=== PATIENT | male | born 1965 | race Caucasian/White ===

== ENCOUNTER 2019-01-30 05:02 | Inpatient (IN) ==
--- NOTE | 2019-01-22 09:39 | PAT Medication Instructions ---
Medication Instructions Date of Service January 22, 2019 Home Medications atorvastatin [Lipitor] 20 mg PO PM diphenhydramine-acetaminophen [Acetaminophen PM] 1 tab PO HS PRN [Centrum Silver Men] 1 tab PO QPM olmesartan [Benicar] 20 mg PO QPM omeprazole magnesium [Prilosec OTC] 20 mg PO QDL zolpidem [Ambien] 10 mg PO HS PRN Take morning of surgery With a small sip of water, OTHERWISE NOTHING TO EAT OR DRINK AFTER MIDNIGHT: omeprazole magnesium [Prilosec OTC] 20 mg PO QDL Take evening before surgery atorvastatin [Lipitor] 20 mg PO PM diphenhydramine-acetaminophen [Acetaminophen PM] 1 tab PO HS PRN (if needed) [Centrum Silver Men] 1 tab PO QPM olmesartan [Benicar] 20 mg PO QPM zolpidem [Ambien] 10 mg PO HS PRN (if needed) Other Notes If you have any questions please call us at [phone] or [phone] or [phone] or [phone]
--- NOTE | 2019-01-22 14:48 | Anesthesiology Consultation ---
Date of Service January 22, 2019 Assessment & Plan (1) Encounter for pre-operative examination: Chart Review Chart Review: Acceptable Risk for Surgery and Patient seen in Pre Admission Testing Teaching & Discussion Instructed NPO after midnight before surgery, except medications with 15 cc of water. Medication instructions provided according to the PAT guidelines. History Surgery Operation Date: 01/30/19 09:50 Proposed Procedures p Right STAR Total Ankle Replacement, - Ryan Lee DO s Possible Percutaneous Tendon Achilles Lengthening - Ryan Lee DO Height/Weight Height: 5 ft 8 in Weight: 94.9 kg Allergies Allergy/AdvReac Type Severity Reaction Status Date / Time No Known Allergies Allergy Verified 01/21/19 13:21 Medications Home Medications Medication Instructions Recorded Confirmed Last Taken atorvastatin [Lipitor] 20 mg PO PM 01/21/19 01/21/19 Unknown diphenhydramine-acetaminophen 1 tab PO HS PRN 01/21/19 01/21/19 Unknown [Acetaminophen PM] opzzwkef-tvz-HF-lycopen-lutein 1 tab PO QPM 01/21/19 01/21/19 Unknown [Centrum Silver Men] olmesartan [Benicar] 20 mg PO QPM 01/21/19 01/21/19 Unknown omeprazole magnesium [Prilosec OTC] 20 mg PO QDL 01/21/19 01/21/19 Unknown zolpidem [Ambien] 10 mg PO HS PRN 01/21/19 01/21/19 Unknown Past Medical History Medical History Ankle pain GERD (gastroesophageal reflux disease) Hyperlipidemia Hypertension Exercise / Class Metabolic Activity II 4-5 Yardwork/Stairs/Walk up hill Past Surgical History Surgical History History of open reduction and internal fixation (ORIF) procedure RIGHT Hx of arthroscopic knee surgery Hx of repair of left rotator cuff Hx of repair of right rotator cuff Past Anesthesia History No Hx of Anesthesia Complications and No Family Hx of Anesthesia Complications History of PONV No Hx of PONV and No Hx of Motion Sickness Social History Smoking Status: Never smoker Hx Alcohol Use: Yes Alcohol type: beer alcohol intake frequency: a few times a week Hx Substance Use: No Review of Systems Pt denies any recent chest pain, shortness of breath, palpitations, cough, fever or URI. Physical Exam Vital Signs BP: 126/84 P: 79bpm SPO2: 96% RA T: 98.0 F R: 12 ENMT Mouth: + dental restorations (permanent denture top front 6 teeth); no chipped teeth and no loose teeth Thyromental Distance: > or= 3.5 Finger Breadths (3.5) Mallampati Class: II Neck normal visual inspection; neck extension not limited Respiratory normal respiratory effort Auscultation: lungs clear to auscultation bilaterally Cardiovascular Rate/Rhythm: regular rate and regular rhythm Heart Sounds: no murmur Vessels: no carotid bruit Extremities: no edema Testing Laboratory Results 01/22/19 15:00 01/22/19 15:00 PT 9.8 Seconds (9.0-12.0) 01/22/19 15:00 INR 1.0 (0.9-1.1) 01/22/19 15:00 APTT 25.1 Seconds (21.0-31.0) 01/22/19 15:00 Urine Color Yellow 01/22/19 15:00 Urine Appearance Clear (Clear) 01/22/19 15:00 Urine pH 7.0 (4.5-7.5) 01/22/19 15:00 Ur Specific [place] 1.025 (1.000-1.030) 01/22/19 15:00 Urine Protein Negative (Negative) 01/22/19 15:00 Urine Glucose (UA) Negative (Negative) 01/22/19 15:00 Urine Ketones Negative (Negative) 01/22/19 15:00 Urine Nitrite Negative (Negative) 01/22/19 15:00 Ur Leukocyte Esterase Negative (Negative) 01/22/19 15:00 Blood Type AB Negative 01/22/19 15:00 Antibody Screen NEGATIVE 01/22/19 15:00 Electrocardiogram Date: 11/05/18 Findings: + NSR @ (69bpm) Possible LAE. Chest X-Ray Date: 01/22/19 Findings: + NAD
--- NOTE | 2019-01-22 15:34 | XRay Report ---
XR chest Pre-admission PA/Lat CLINICAL HISTORY: Preoperative chest COMPARISON STUDY: No previous studies for comparison. FINDINGS: The heart is the upper limits of normal in size. There is no failure. There is no focal pul monary consolidation. There are no pleural effusions. There is a mild scoliosis. Degenerative changes are present within the spine. There are postsurgical changes involving the right shoulder.[ IMPRESSION: No active disease in the chest. Electronically signed by: Golden Salinas M.D. 01/22/2019 3:33 PM
[2019-01-22 16:05] LABS: Basophils # (auto) 0.01 K/uL (0-0.2); Basophils % (auto) 0.2 %; Eosinophils # (auto) 0.09 K/uL (0-0.5); Eosinophils % (auto) 2.2 %; Hemoglobin 14.7 g/dL (14.0-18.0); Immature Granulocytes # (auto) 0.01 K/uL (0.00-0.02); Immature Granulocytes % (auto) 0.2 %; Lymphocytes # (auto) 1.13 K/uL (1.2-3.4); Lymphocytes % (auto) 27.2 %; Mean Corpuscular Hemoglobin 32.1 pg (25-34); Mean Corpuscular Hgb Conc 34.2 g/dL (32-36); Mean Corpuscular Volume 93.9 fL (80-100); Mean Platelet Volume 11.9 fL (7.4-10.4); Monocytes # (auto) 0.32 K/uL (0.11-0.59); Monocytes % (auto) 7.7 %; Neutrophils % (auto) 62.5 %; Platelet Count 147 K/uL (130-400); RDW Coefficient of Variation 12.8 % (11.5-14.5); RDW Standard Deviation 43.9 fL (36.4-46.3); Red Blood Count 4.58 M/uL (4.7-6.1); White Blood Count 4.16 K/uL (4.8-10.8)
[2019-01-22 16:13] LABS: Creatinine Clr Calc Pharmacy 91.6 ml/min; Potassium 3.8 mmol/L (3.5-5.1)
[2019-01-22 16:18] LABS: Appearance Urine Clear (Clear); Bilirubin Urine Negative (Negative); Blood Urine Negative (Negative); Color Urine Yellow; Glucose Urine UA Negative (Negative); Ketones Urine Negative (Negative); Leukocyte Esterase Urine Negative (Negative); Nitrite Urine Negative (Negative); Partial Thromboplastin Ratio 0.9; Partial Thromboplastin Time 25.1 Seconds (21.0-31.0); Protein Urine Negative (Negative); Prothrombin Time 9.8 Seconds (9.0-12.0); Specific Gravity Urine 1.025 (1.000-1.030); Urobilinogen Urine Negative (Negative)
--- NOTE | 2019-01-29 15:41 | History & Physical Report ---
Date of Service January 29, 2019 Assessment & Plan (1) Traumatic arthritis of right ankle: Schedule a right ankle STAR total ankle arthroplasty, percutaneous tendoachilles lengthening And application platelet rich plasma concentrate as a an aide for bone and tissue healing for 01.30.19. All potential risks, benefits, complications, alternatives, and rehab have been discussed with the patient and he wishes to proceed. Plan for D/C home upon discharge with ASA 81 mg BID x 6 wks for DVT prophylaxis. (2) Achilles tendon contracture, right: History of Present Illness Chief Complaint: chronic right ankle pain Primary Care Provider: NO PCP This is a patient with a long hx of right ankle pain secondary to previous right ankle fx that was fixed many years ago. He was treated conservatively however has failed all conservative management. He is now being set up for surgical tx. Allergies Allergy/AdvReac Type Severity Reaction Status Date / Time No Known Allergies Allergy Verified 01/30/19 05:36 Home Medications Home Medications Medication Instructions Recorded Confirmed Type atorvastatin [Lipitor] 20 mg PO PM 01/21/19 01/30/19 History diphenhydramine-acetaminophen 1 tab PO HS PRN 01/21/19 01/30/19 History [Acetaminophen PM] yppsjqmj-gve-YX-lycopen-lutein 1 tab PO QPM 01/21/19 01/30/19 History [Centrum Silver Men] olmesartan [Benicar] 20 mg PO QPM 01/21/19 01/30/19 History omeprazole magnesium [Prilosec OTC] 20 mg PO QDL 01/21/19 01/30/19 History zolpidem [Ambien] 10 mg PO HS PRN 01/21/19 01/30/19 History Past Med/Surg History Medical History Ankle pain GERD (gastroesophageal reflux disease) Hyperlipidemia Hypertension Surgical History History of open reduction and internal fixation (ORIF) procedure RIGHT Hx of arthroscopic knee surgery Hx of repair of left rotator cuff Hx of repair of right rotator cuff Social History Preferred Language: Uzbek Communication Ability: Effective Beliefs That Will Affect Care: None Current Living Situation: Spouse Feels Safe at Home: Yes Safety Concerns: Feels Safe At This Time Smoking Status: Never smoker Second Hand Exposure: Yes (SOCIALLY) ; Hx Alcohol Use: Yes Alcohol type: beer Hx Substance Use: No Physical Exam Constitutional: well developed and well nourished; no acute distress ENMT: external ear and nose normal, oropharynx normal Neck: trachea midline, no thyromegaly Respiratory: normal respiratory effort, lungs clear to auscultation Cardiovascular: Rate/Rhythm: regular rate Gastrointestinal (Abdomen): normal bowel sounds, soft, nontender, no hepatosplenomegaly Musculoskeletal: Gait: + antalgic gait (right) Shoulder: + joint line tenderness (anterior right ankle) Ankle: + surgical incision (healed right ankle incisions), + limited ROM of ankle (right ankle, particularly with dorsiflexion), + ankle ROM with crepitation (right) and + joint line tenderness (anterior right ankle); ankle normal to inspection, no deformity, no skin erythema and no ecchymosis Skin: no rashes, warm and dry Neurologic: normal touch/pain/proprioception Psychiatric: A+Ox3, euthymic affect Lymphatic: no cervical or axillary lymphadenopathy
[2019-01-30] MEDS ORDERED: FAMOTIDINE 20 MG TAB PO SCH (06:00)
[2019-01-30] MEDS ORDERED: CEFAZOLIN 2000MG 2,000 MG/15 ML SYR IV SCH ×2 (06:00)
[2019-01-30] MEDS ORDERED: ACETAMINOPHEN 500 MG TAB PO SCH (06:00)
[2019-01-30] MEDS ORDERED: GABAPENTIN 900 MG DOSE PO SCH (06:00)
[2019-01-30] MEDS ORDERED: METOCLOPRAMIDE HCL 10 MG TABLET PO SCH (06:00)
[2019-01-30] MEDS ORDERED: ROPIVACAINE 0.5% HCL/PF 150 MG, BUPIVACAINE 0.5% MPF 30 ML, EPINEPHrine 30MG/30ML (OR U... INFIL SCH (06:00)
[2019-01-30] MEDS ORDERED: dexAMETHasone 4 MG TAB PO SCH (06:00)
[2019-01-30] MEDS ORDERED: LR 15ML/HR IV SCH (06:00)
[2019-01-30] MEDS ORDERED: CeleBREX 200 MG CAP PO SCH (06:00)
[2019-01-30] MEDS ORDERED: BUPIVACAINE 0.5 % 5 MG/1 ML MPF 30ML VIAL ONE (06:21)
[2019-01-30] MEDS ORDERED: PROMETHAZINE HCL 12.5 MG in SODIUM CHLORIDE 0.9% 50 ML IV PRN (06:48)
[2019-01-30] MEDS ORDERED: HYDROmorphone INJ 2 MG/ML SYR/VIAL IV PRN (06:48)
[2019-01-30] MEDS ORDERED: fentaNYL citrate 100 MCG/2 ML VIAL IV PRN (06:48)
[2019-01-30] MEDS ORDERED: ePHEDrine sulfate 50 MG/ML AMP IV PRN (06:48)
[2019-01-30] MEDS ORDERED: METOCLOPRAMIDE HCL INJ 5 MG/ML 2 ML VIAL IV PRN ×2 (06:48→12:54)
[2019-01-30] MEDS ORDERED: ATROPINE SULFATE 0.1 MG/ML 10ML SYR IV PRN (06:48)
[2019-01-30] MEDS ORDERED: fentaNYL citrate 100 MCG/2 ML VIAL ONE ×4 (06:51→11:20)
[2019-01-30] MEDS ORDERED: ONDANSETRON INJ 2 MG/ML 2 ML VIAL ONE (06:51)
[2019-01-30] MEDS ORDERED: PROPOFOL IV EMULSION 10 MG/ML 20 ML VIAL IV ONE (06:51)
[2019-01-30] MEDS ORDERED: MIDAZOLAM HCL 1 MG/ML 2ML VIAL ONE (06:51)
[2019-01-30] MEDS ORDERED: LIDOCAINE HCL 2% 2 ML VIAL/AMP(20MG/ML) INFIL ONE (06:51)
[2019-01-30] MEDS ORDERED: BACITRACIN INJ 50,000 UNIT VIAL ONE (07:11)
--- NOTE | 2019-01-30 07:37 | History & Physical Bridge Note ---
Date of Service January 30, 2019 History & Physical Bridge Note I have examined the patient, reviewed the History & Physical and in the interval since the performance of the History & Physical I have noted the following changes of clinical significance: no changes noted
[2019-01-30] MEDS ORDERED: BUPIVACAINE 0.5 % 5 MG/1 ML PF 10ML VIAL ONE (07:43)
[2019-01-30] MEDS ORDERED: CALCIUM CHLORIDE 10% 10 ML SYR IV ONE (08:14)
[2019-01-30] MEDS ORDERED: THROMBIN 5000 UNITS KIT ONE ×2 (08:15→08:40)
[2019-01-30] MEDS ORDERED: LARYING-O-JET KIT (LTA) ONE (08:53)
[2019-01-30] MEDS ORDERED: ROCURONIUM BROMIDE 10 MG/ML 5 ML VIAL ONE (08:53)
[2019-01-30] MEDS ORDERED: PHENYLEPHRINE 100MCG/ML 5ML SYR ONE (08:59)
[2019-01-30] MEDS ORDERED: ePHEDrine sulfate 50 MG/ML SYR ONE (08:59)
--- NOTE | 2019-01-30 11:09 | Post Operative Brief Note ---
Immediate Post Op Note v1 Date of Surgery January 30, 2019 Pre & Post Diagnosis Operation Date: 01/30/19 07:30 Pre-Op Diagnosis: RIGHT ANKLE Degenerative joint disease, Right Achilles tendon contracture, Ankle OSTEOARTHRITIS Post-Op Diagnosis: RIGHT ANKLE Degenerative joint disease, Right Achilles tendon contracture, Ankle OSTEOARTHRITIS I identified the patient and participated in the time-out.: Yes Procedure Operation Date: 01/30/19 07:30 Actual Procedures p Right STAR Total Ankle Replacement,(Right) - Ryan Lee DO s Percutaneous Tendon Achilles Lengthening, Application of Platelet Rich Plasma Concentrate - Ryan Lee DO Surgeon Ryan Lee DO Design Agent Edson Whipple PA-C Estimated Blood Loss 5 Findings Consistent with Post-Op Diagnosis Specimens None Drains Hemovac Drain (10 FR SINGLE) Anesthesia Type General Regional Complications none Disposition Accompanied Patient To Recovery: No Disposition: Recovery Room
--- NOTE | 2019-01-30 11:13 | Fluoroscopy Report ---
FL ankle RT 2V CLINICAL HISTORY: RT TOTAL ANKLE COMPARISON STUDY: None FLUOROSCOPY TIME: 111 seconds. NUMBER OF FLUOROSCOPIC IMAGES: 2 FINDINGS: 2 intraoperative fluoroscopic spot images reveal postsurgical changes of a total right ankl e arthroplasty IMPRESSION: Intraoperative radiographs demonstrating a total right ankle arthroplasty. Electronically signed by: Golden Salinas M.D. 01/30/2019 11:12 AM
--- NOTE | 2019-01-30 12:00 | Anesthesiology Progress Note ---
Date of Service January 30, 2019 Anesthesia Post Procedure Vital Signs Vital Signs: Temp Pulse Pulse Resp BP BP Pulse Ox 01/30/19 11:55 86 14 120/72 96 01/30/19 11:45 103 H 16 110/61 96 01/30/19 11:35 106 H 14 127/78 100 01/30/19 11:25 36.2 C L 101 H 12 123/71 97 01/30/19 05:40 36.5 C 86 16 120/97 100 Pain Intensity Right Ankle: Pain Intensity: 5 Transfer of Care Handoff Completed per policy Notes Mental Status: alert / awake / arousable and participated in evaluation Patient Amnestic to Procedure: Yes Nausea / Vomiting: adequately controlled Pain: adequately controlled Airway Patency, RR, SpO2: stable & adequate BP & HR: stable & adequate Hydration State: stable & adequate Anesthetic Complications: no major complications apparent
--- NOTE | 2019-01-30 12:25 | XRay Report ---
XR ankle RT min 3V routine CLINICAL HISTORY: post op ankle replacement COMPARISON STUDY: None. FINDINGS: Status post tibiotalar arthroplasty. The hardware appears intact. No fracture or dislocatio n. Skin teresa and surgical drains are in place. Overlying splint material obscures fine bony detail . IMPRESSION: Status post right ankle arthroplasty. No evidence for hardware complication. Electronically signed by: Jose Armando Medellin M.D. 01/30/2019 12:24 PM
[2019-01-30] MEDS ORDERED: OXYCODONE HCL IR 5 MG TAB (IMMEDIATE RELEASE) PO PRN (12:54)
[2019-01-30] MEDS ORDERED: ONDANSETRON INJ 2 MG/ML 2 ML VIAL IV PRN (12:54)
[2019-01-30] MEDS ORDERED: NALOXONE HCL 0.4 MG/1 ML VIAL/CARP IV PRN (12:54)
[2019-01-30] MEDS ORDERED: ALUMINUM/MAGNESIUM SUSP 30 ML UDC PO PRN (12:54)
[2019-01-30] MEDS ORDERED: ZOLPIDEM TARTRATE 10 MG TAB PO PRN (12:54)
[2019-01-30] MEDS ORDERED: bisacodyL 10 MG SUPP PR PRN (12:54)
[2019-01-30] MEDS ORDERED: MULTIVITAMIN TAB PO SCH (12:54)
[2019-01-30] MEDS ORDERED: MAGNESIUM HYDROXIDE SUSP 30 ML UDC PO PRN (12:54)
[2019-01-30] MEDS ORDERED: HYDROmorphone INJ 0.5 MG/0.5 ML SYR IV PRN (12:54)
[2019-01-30] MEDS ORDERED: TAMSULOSIN HCL 0.4 MG CAP PO PRN (12:54)
[2019-01-30] MEDS ORDERED: ACETAMINOPHEN 500 MG TAB PO PRN (13:30)
--- NOTE | 2019-01-30 13:44 | Operative Report ---
DATE OF OPERATION: 01/30/2019 PREOPERATIVE DIAGNOSES: 1. Right ankle degenerative joint disease. 2. Right ankle osteoarthritis. 3. Achilles tendon contracture. 4. Right ankle pain. POSTOPERATIVE DIAGNOSES: 1. Right ankle degenerative joint disease. 2. Right ankle osteoarthritis. 3. Achilles tendon contracture. 4. Right ankle pain. PROCEDURES: 1. Right STAR total ankle replacement using a large tibia, a medium talus and an 8 mm polyethylene. 2. Percutaneous tendo Achilles lengthening. 3. Application of platelet rich plasma concentrate. SURGEON: Ryan Lee DO SENIOR WRITER: Edson Whipple PA-C who was present for patient positioning, sterile prep and drape, management of retractors and instruments. He was present through the critical portions of the case including wound closure, application of sterile dressing and transport of the patient to recovery. ANESTHESIA: General regional. SPECIMENS: None. DRAINS: Hemovac x1. COMPLICATIONS: None. BLOOD LOSS: 5 mL. 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 He underwent ORIF and had a relatively uneventful course. Over the last 5-7 years; however, the patient has had progressively worsening right ankle pain, swelling and limitation in ability to perform his regular work duties and activities of daily living. He attempted and failed conservative management including shoe wear modification, activity modification, anti-inflammatories, both topical and oral, corticosteroid injections, use of a brace, physician-directed home exercises, and physical therapy. Radiographs and CT scan demonstrate severe degenerative arthritis of the right ankle with complete loss of joint space, marginal osteophytes, subchondral sclerosis and subchondral cyst formation. The patient was then scheduled for surgery as indicated. All potential risks, benefits, complications, alternatives, rehab, potential for incomplete relief of symptoms, need for further surgery, DVT, PE, , persistent pain, swelling, scarring, weakness, neurovascular injury, wound complications, hardware failure, nonunion, malunion and bone fracture were discussed with the patient. The patient decided to proceed with the procedure as indicated. PROCEDURE: The patient was taken to the operative suite after popliteal block was administered. The patient was placed supine on the operating room table. Tourniquet was applied over the right lower extremity. After the patient was anesthetized, LMA was placed. The right lower extremity was then sterilely prepped and draped in the usual sterile fashion [id number], elevated and exsanguinated with an Esmarch bandage, and tourniquet inflated to 350 mmHg. Next, a 15-blade scalpel incision made in the midline of the right ankle taking care to identify the tibialis anterior. The incision was made lateral to the tibialis anterior and centered over the extensor hallucis longus tendon. The incision was deepened through subcutaneous tissue. Meticulous hemostasis was achieved with electrocautery. Full-thickness skin flaps were developed. Superficial peroneal nerve was identified, retracted, and protected. Next, the extensor retinaculum was incised along the skin incision to the lateral aspect of the tibialis anterior. Tibialis anterior was retracted medially. The extensor hallucis longus and the neurovascular bundle beneath were retracted laterally. The small crossing vessels were cauterized. The anterior capsule was then incised in its midline and then elevated medially and laterally with electrocautery. Appropriate soft tissue retractors were placed carefully to maintain essentially zero skin tension on the superficial skin. After the capsule was elevated and retracted medially and laterally to visualize the medial and lateral malleoli clearly, rongeur was used to perform synovectomy and remove any excess debris and loose bodies. Next, the wound was irrigated and suctioned. Good visualization was obtained. At this point the anterior lip of hypertrophic bone was resected from the tibia with an osteotome and mallet followed by resection of a small osteophyte medially at the medial malleolus. Next, the tibial plafond could be clearly visualized. The neck of the talus was then rongeured down to the true neck of the talus after all hypertrophic osteophytes were excised. Next, attention was directed toward the proximal tibia at which point a 15-blade scalpel incision was made anterior of the tibial tubercle the inferior aspect using the external alignment guide as a guide for pin placement which was essentially in the midline of the tibia with a slight degree of plantar flexion. Guide was placed anteriorly using a small osteotome in the medial gutter of the ankle joint to heater operator helper in alignment. Next, the small 2.4 mm pin was placed adjacent to the tibial tubercle and the alignment guide was placed approximately one fingerbreadth above the soft tissue and fastened there at approximately four notches medialized proximally. Next, the T-handle guide was placed anteriorly and then this was aligned with the small osteotome and placed in the medial gutter of the ankle joint to make this parallel and then also the orientation of the second ray of the foot was used to guide as well. Next, the more proximal alignment block was pinned unicortically followed by placement of the lateral alignment guide on the tibial alignment jig and the T-handle was removed. Distal cutting block was then fastened to the distal aspect of the tibial alignment guide and then x-rays obtained in AP and lateral projections of the ankle and tibia assuring appropriate alignment of the tibial alignment guide and the tibial cutting block. After appropriate alignment was established, the distal cutting block was then pinned in place with two 2.4 mm pins, one in the proximal and then secondarily in the distal aspect of the tibial cutting guide and the tibial cutting guide was aligned at the inferior aspect at the level of the tibial plafond. Next, after the tibial cutting blocks were aligned and confirmed, the medial and lateral saw capture pins were placed followed by resection of the distal tibia with a sagittal saw. The pins were removed and the distal cutting guide was then removed followed by removal of the distal tibial cut fragment after it was morselized with a small osteotome and resected with a rongeur. A cervical lamina tip finisher was placed in the ankle joint to open the ankle joint followed by resection of the posterior fragments from the distal tibia cut. Next, the talar cutting guide paddle was placed at the distal tibial cutting guide and fastened in place. The ankle was held in neutral dorsiflexion. Four pins were placed in the talar cutting block fixing the talus in appropriate alignment. Next, after the saw capture pins were placed, the sagittal saw was used to resect the superior aspect of the talus. The talar cutting block guide was then removed as well as the pins and talus. This was then followed by placement of datum guide which was initially placed as an extra small position with regard to position on the talus as well as orientation along the second ray. Central pin was placed and then the posterior capture cutting guide was attached and the anterior milling guide was also fastened with two football screws. Next, the anterior mill was used to resect the anterior aspect of the talar dome. Posterior cut was made. This jig was then removed followed by placement of the shoulder cutting guide and the reciprocating saw was just resect the shoulder portions of the talus using the laser cut line. This guide was then removed leaving the central pin followed by resection of the fragments using a small osteotome and mallet. This was then elevated and resected. Next, the window trial was firmly affixed to the superior aspect of the talus using fluoroscopic confirmation of alignment and position. Next, the central keel was drilled. The window trial was then removed following use of the central keel punch. This was also confirmed using fluoroscopic assistant district attorney. The wound was copiously irrigated with pulsatile lavage with Bacitracin additive followed by suctioning of the talar component. Platelet-rich plasma was injected at this time at the undersurface of the implant as well as in the talar dome. The final talar component was impacted in place with fluoroscopic assistance. Next, a trial polyethylene 6 mm was placed in the joint and the posterior aspect of the tibia was measured both medially and laterally. Appropriate size tibial drill guide was then placed and fastened with two pins. This was confirmed with x-ray and then the barrel drills x 2 were performed making certain to aim proximally. Next, the barrel cutting jig was then used to perform the final punch medially and laterally. The trial plate was then removed after appropriate sized polyethylene was sized. Next, the joint was copiously irrigated with pulsatile lavage followed by suctioning of all surfaces. The tibia was then injected with platelet-rich plasma as well as the superior aspect of the tibial final plate implant. This was then impacted in place with the trial polyethylene liner in place to ensure adequate positioning. Next, the final impactor was used to seat the tibial base tray flush with the anterior aspect of the tibia followed by bone grafting of the anterior barrel holes with local bone graft. This was impacted in place with a mallet and bone tamp. This then followed by confirmation with C-arm and then final polyethylene was inserted without difficulty. Excellent range of motion and stability was obtained. No liftoff was noted. The platelet-rich plasma was then sprayed within the joint and all surfaces and also into the subcutaneous tissue and deep soft tissue. A 10-Yi single-lumen Hemovac drain was placed anterolaterally followed by closure of the ankle joint capsule with #1 Vicryl. The extensor retinaculum was closed using interrupted 2-0 Vicryl, the dermis closed buried 3-0 Vicryl, and skin was closed using 4-0 nylon. A sterile compressive bulky Gerald Anton plaster splint was applied overwrapped with an Nadir wrap. Tourniquet was released. The patient was awakened and taken to recovery in stable condition. I attest to the content of the Intraoperative Record and any orders documented therein. Any exception s are noted below.
[2019-01-30] MEDS: SODIUM CHLORIDE 0.9% 1000ML 1,000 ML IV SCH ×2 (14:03→23:13)
[2019-01-30] MEDS: ACETAMINOPHEN 500 MG TAB PO SCH ×2 (14:05→21:00)
[2019-01-30] MEDS: DOCUSATE SODIUM 100 MG CAP PO SCH ×2 (14:05→21:00)
[2019-01-30] MEDS: KETOROLAC TROMETHAMINE 15 MG/ML VIAL IV SCH ×2 (14:06→20:57)
[2019-01-30] MEDS: CEFAZOLIN 2000MG 2,000 MG/15 ML SYR IV SCH ×2 (16:39→23:11)
[2019-01-30] MEDS ORDERED: ATORVASTATIN 20 MG TAB PO SCH (21:00)
[2019-01-30] MEDS ORDERED: SENNA 8.6 MG TAB PO SCH (21:00)
[2019-01-30] MEDS ORDERED: CEROVITE ADV FORMULA TAB PO SCH (21:00)
[2019-01-30] MEDS ORDERED: OLMESARTAN MEDOXOMIL 20 MG TAB PO SCH (21:00)
[2019-01-31] MEDS: KETOROLAC TROMETHAMINE 15 MG/ML VIAL IV SCH ×2 (02:58→08:19)
[2019-01-31] MEDS: ACETAMINOPHEN 500 MG TAB PO SCH (05:20)
[2019-01-31 06:55] LABS: Hematocrit (blood only) 38.5 % (42-52); Hemoglobin 13.7 g/dL (14.0-18.0); Mean Corpuscular Hemoglobin 33.7 pg (25-34); Mean Corpuscular Hgb Conc 35.6 g/dL (32-36); Mean Corpuscular Volume 94.8 fL (80-100); Mean Platelet Volume 11.2 fL (7.4-10.4); Platelet Count 152 K/uL (130-400); RDW Coefficient of Variation 12.9 % (11.5-14.5); RDW Standard Deviation 44.8 fL (36.4-46.3); Red Blood Count 4.06 M/uL (4.7-6.1); White Blood Count 9.64 K/uL (4.8-10.8)
[2019-01-31 07:31] LABS: BUN Creatinine Ratio 18.9 (10-20); Calcium 8.9 mg/dl (8.5-10.1); Creatinine Clr Calc Pharmacy 82.5 ml/min; Est GFR (Non-African American) 72.5; Potassium 4.4 mmol/L (3.5-5.1)
[2019-01-31] MEDS: DOCUSATE SODIUM 100 MG CAP PO SCH (08:19)
--- NOTE | 2019-01-31 09:46 | Orthopedic Progress Note ---
Date of Service January 31, 2019 Assessment & Plan (1) Traumatic arthritis of right ankle: POD#1 Right STAR Total Ankle Replacement -Pain management -DVT prophylaxis-ASA 81mg BID x 30 days -NWB RLE -Discharge planning-discharge likely later this morning as long as pain continues to be well controlled Subjective Patient is POD#1 Right STAR Total Ankle Replacement. Doing well this morning, no pain. Block is still effective. Review of Systems Review of Systems: All systems reviewed & are unremarkable except as noted in HPI & below Physical Exam Physical Exam: Dressing is c/d/i to RLE. Hemovac in place. Decreased sensation to toes, good cap refill. Starting to be able to wiggle toes Constitutional: well developed and well nourished; no acute distress Results & Data Vital Signs (Past 12 Hours) Vital Signs Temp Pulse Resp BP Pulse Ox 01/31/19 07:18 36.9 C 79 18 103/61 98 01/31/19 03:12 36.8 C 92 H 18 133/78 96 01/30/19 23:45 36.8 C 67 16 112/68 100
[2019-01-31] MEDS ORDERED: PANTOprazole 40 MG TAB PO SCH (11:30)
--- NOTE | 2019-02-06 08:51 | Discharge Summary ---
Date of Service February 06, 2019 Admission HPI Per Admitting Provider This is a patient with a long hx of right ankle pain secondary to previous right ankle fx that was fixed many years ago. He was treated conservatively however has failed all conservative management. He is now being set up for surgical tx. Principal Diagnosis right ankle osteoarthritis Discharge Exam Constitutional well developed and well nourished; no acute distress ENMT external ear and nose normal, oropharynx normal Neck trachea midline, no thyromegaly Respiratory normal respiratory effort, lungs clear to auscultation Cardiovascular Rate/Rhythm: regular rate Gastrointestinal (Abdomen) normal bowel sounds, soft, nontender, no hepatosplenomegaly Musculoskeletal Gait: + antalgic gait (right) Ankle: + surgical incision (right ankle: splint C/D/I); ankle normal to inspection, no deformity, no skin erythema and no ecchymosis Skin no rashes, warm and dry Neurologic normal touch/pain/proprioception Psychiatric A+Ox3, euthymic affect Lymphatic no cervical or axillary lymphadenopathy Discharge Data Allergies Allergy/AdvReac Type Severity Reaction Status Date / Time No Known Allergies Allergy Verified 01/30/19 05:36 Consultations 01/30/19 12:54 Consult Case Management - Discharge Planning Routine Procedures Performed Operation Date: 01/30/19 07:30 Actual Procedures p Right STAR Total Ankle Replacement,(Right) - Ryan Fierro DO s Percutaneous Tendon Achilles Lengthening, Application of Platelet Rich Plasma - Ryan Fierro DO Ordered Studies 01/30/19 05:00 US - OR guided needle placemen Routine 01/30/19 07:30 FL ankle RT 2V Routine FL fluoroscopy <1hr Routine Hospital Course (1) Traumatic arthritis of right ankle: The patient was admitted on 01.30.19 and underwent a right STAR total ankle replacement. He was admitted for pain control and for maintaining NWB RLE. On POD #1, his pain was controlled and he was maintaining NWB status. He was discharged later on POD #1. POD#1 Right STAR Total Ankle Replacement -Pain management -DVT prophylaxis-ASA 81mg BID x 30 days -NWB RLE -Discharge planning-discharge likely later this morning as long as pain continue s to be well controlled Total Time Total Time Spent Total Time Spent (In Minutes): 30 Total Time Includes: Examination of the Patient, Discharge Planning and Medication Reconciliation Discharge Plan Discharge Items Patient Disposition: Home - Home Health Services Reason For Visit: RIGHT ANKLE & FOOT OSTEOARTHRITIS Discharge Diagnosis: Right ankle osteoarthritis Activity: Per Instructions section Non-emergency contact: Surgeon Call non-emergency contact if: you have any medication questions, your pain is not controlled, your pain is worsening, you have a fever, your temperature is above 101, your wound has increased redness and your wound has increased drainage Follow-up/Referrals: PCP,NO [Primary Care Provider] - Diet: Regular Addtl Attending Provider Instructions: ACTIVITY RECOMMENDATIONS: Limitations: No weight bearing to affected limb at all times. SPECIAL CARE INSTRUCTIONS: * Take Aspirin 81 mg every 12 hours for the next 6 weeks. * Some drainage onto the dressing is normal and is no cause for alarm. * Some swelling is natural especially after walking. * When resting, keep your foot elevated above the level of your heart. * Call [facility] if you notice: -Increased drainage -Fever over 101 degrees F -Severe constant pain BANDAGE: * Leave bandage/cast in place unless otherwise directed. * Keep bandage/cast dry at all times. FOLLOW UP VISIT WITH DR. FIERRO If appointment is not already scheduled: Please [facility] after you get home today to schedule a follow-up appointment for [address] Fierro at . Pending Studies at Discharge: No Stand-Alone Forms: My [facility] [address], Opioid Pain Management, Smoking Cessation Medications and DC Order Prescriptions: New acetaminophen 500 mg Tablet 1,000 mg PO Q8 Qty: 60 RF: 0 oxycodone 5 mg Tablet 5 - 10 mg PO .Q4H-6H MDD 6 PRN (Reason: pain) Qty: 30 RF: 0 aspirin 81 mg tablet,delayed release (DR/EC) 81 mg PO BID Qty: 60 RF: 0 Continued atorvastatin [Lipitor] 20 mg Tablet 20 mg PO PM RF: 0 zolpidem [Ambien] 10 mg Tablet 10 mg PO HS PRN (Reason: Sleep) RF: 0 diphenhydramine-acetaminophen [Acetaminophen PM] 25-500 mg Tablet 1 tab PO HS PRN (Reason: PAIN ) RF: 0 olmesartan [Benicar] 20 mg Tablet 20 mg PO QPM RF: 0 Prilosec OTC 20 mg Tablet,Delayed Release (Dr/Ec) 20 mg PO QDL RF: 0 Centrum Silver Men 300-600-300 mcg Tablet 1 tab PO QPM RF: 0 Discharge Orders: Discharge Order (Routine); Ordered 01/31/19 Ordered By: Omar Carney/Other Patient Handouts: Surgery Prevent DVT After Admission Data Admit Date/Time: 01/30/19 11:29 Attending Provider: Ryan Fierro Admit Provider: Ryan Fierro Primary Care Provider: PCP,NO Other Interventions: Discharge Summary Assessment (RN) Last Done: 01/31/19 10:25 DC Date/Time DO NOT enter until pt leaves facility: 01/31/19 11:34
== END 2019-01-31 11:34 | disposition home health service (06) | DRG 469 ==
LOC: ASU 05:02 → 3E 11:29
DX: M12.571 Traumatic arthropathy, right ankle and foot